=== PATIENT | male | born 1965 | race Caucasian/White ===

== ENCOUNTER 2018-01-28 16:04 | Outpatient (REF) | payer MEDICAID, SELFPAY ==
[2018-01-28 22:45] LABS: Anion Gap 6.8 mmol/L (3-11); BUN 16 mg/dL (7-18); CO2 27.2 mmol/L (21.0-32.0); Calcium 8.9 mg/dL (8.5-10.1); Chloride 95 mmol/L (98-107); Glucose 317 mg/dL (70-100); Potassium 3.9 mmol/L (3.5-5.1); Sodium 129 mmol/L (136-145); TSH (W/Ref FT4) 26.52 uIU/mL (0.358-3.74)
[2018-01-28 22:52] LABS: Hemoglobin A1C 7.9 % (4.5-6.2)
[2018-01-28 23:22] LABS: FREE T4 0.45 ng/dL (0.76-1.46)
== END 2018-01-28 16:05 ==
LOC: NCHCN 16:04
PROVIDERS: PCP Internal Medicine; Visit Provider Internal Medicine
DX: E03.9 Hypothyroidism, unspecified (principal); I10 Essential (primary) hypertension; E11.9 Type 2 diabetes mellitus without complications; M79.606 Pain in leg, unspecified
CPT/HCPCS: 80048; 83036; 84439; 84443

== ENCOUNTER 2018-03-23 11:46 | Outpatient (REF) | payer MEDICAID, SELFPAY ==
[2018-03-23 21:39] LABS: ALT 123 U/L (12-78); AST 94 U/L (15-37); Albumin 4.1 g/dL (3.4-5.0); Alkaline Phosphatase 200 U/L (46-116); Anion Gap 7.6 mmol/L (3-11); BUN 14 mg/dL (7-18); Bilirubin, Total 1.2 mg/dL (0.2-1.0); CO2 29.4 mmol/L (21.0-32.0); CREATININE 1.05 mg/dL (0.70-1.30); Calcium 9.5 mg/dL (8.5-10.1); Chloride 95 mmol/L (98-107); Glucose 288 mg/dL (70-100); Potassium 5.1 mmol/L (3.5-5.1); Sodium 132 mmol/L (136-145); TSH 14.96 uIU/mL (0.358-3.74); Total Protein 7.4 g/dL (6.4-8.2); Uric Acid 3.8 mg/dL (3.5-7.2)
== END 2018-03-23 12:06 ==
LOC: NCHCN 11:46
PROVIDERS: PCP Internal Medicine; Visit Provider Internal Medicine
DX: E03.9 Hypothyroidism, unspecified (principal); M10.9 Gout, unspecified; R94.5 Abnormal results of liver function studies
CPT/HCPCS: 80053; 84443; 84550

== ENCOUNTER 2018-08-13 19:28 | Outpatient (REF) | payer MEDICAID, SELFPAY ==
[2018-08-13 22:40] LABS: COMMENT (LAB VIEW ONLY) 85.18 mg/dL; Microalb ug/mg Crea 21.4 ug/mg Cr
== END 2018-08-13 19:48 ==
LOC: NCHCN 19:28
PROVIDERS: PCP Internal Medicine; Visit Provider Internal Medicine
DX: E11.9 Type 2 diabetes mellitus without complications (principal)
CPT/HCPCS: 82043; 82570

== ENCOUNTER 2019-01-19 08:39 | Outpatient (REF) | payer MEDICAID, SELFPAY ==
[2019-01-19 21:35] LABS: Anion Gap 11.2 mmol/L (3-11); BUN 17 mg/dL (7-18); CO2 26.8 mmol/L (21.0-32.0); CREATININE 0.99 mg/dL (0.70-1.30); Calcium 9.6 mg/dL (8.5-10.1); Calculated LDL 145 mg/dL; Chloride 97 mmol/L (98-107); Cholesterol 224 mg/dL (50-200); Glucose 157 mg/dL (70-100); HDL Cholesterol 56 mg/dL (40-60); Potassium 4.9 mmol/L (3.5-5.1); Sodium 135 mmol/L (136-145); TSH (W/Ref FT4) 16.44 uIU/mL (0.36-3.74); Triglyceride 118 mg/dL (30-150)
[2019-01-19 21:44] LABS: Hemoglobin A1C 6.9 % (4.5-6.2)
== END 2019-01-19 08:59 ==
LOC: NCHCN 08:39
PROVIDERS: PCP Internal Medicine; Visit Provider Internal Medicine
DX: E11.9 Type 2 diabetes mellitus without complications (principal); I10 Essential (primary) hypertension; E03.9 Hypothyroidism, unspecified; Z13.6 Encounter for screening for cardiovascular disorders
CPT/HCPCS: 80048; 80061; 83721; 83036; 84439; 84443

== ENCOUNTER 2019-04-12 21:43 | Outpatient (REF) | payer SELFPAY ==
[2019-04-12 22:05] LABS: Calculated LDL 89 mg/dL; Cholesterol 173 mg/dL (50-200); HDL Cholesterol 67 mg/dL (40-60); TSH 25.35 uIU/mL (0.36-3.74); Triglyceride 87 mg/dL (30-150)
== END 2019-04-12 22:03 ==
LOC: NCHCN 21:43
PROVIDERS: PCP Internal Medicine; Visit Provider Internal Medicine
DX: Z13.220 Encounter for screening for lipoid disorders (principal); E11.9 Type 2 diabetes mellitus without complications; I10 Essential (primary) hypertension; E03.9 Hypothyroidism, unspecified
CPT/HCPCS: 80061; 84443

== ENCOUNTER 2020-02-04 10:54 | Outpatient (REF) | payer SELFPAY ==
[2020-02-04 21:46] LABS: Hemoglobin A1C 6.6 % (<5.7)
[2020-02-04 22:18] LABS: ALT 97 U/L (16-63); AST 90 U/L (15-37); Albumin 3.9 g/dL (3.4-5.0); Alkaline Phosphatase 198 U/L (46-116); Anion Gap 5.8 mmol/L (3-11); BUN 12 mg/dL (7-18); Bilirubin, Total 0.7 mg/dL (0.2-1.0); CO2 31.2 mmol/L (21.0-32.0); CREATININE 1.13 mg/dL (0.70-1.30); Calcium 8.6 mg/dL (8.5-10.1); Calculated LDL 71 mg/dL (<100); Chloride 99 mmol/L (98-107); Cholesterol 139 mg/dL (<200); Glucose 214 mg/dL (74-106); HDL Cholesterol 50 mg/dL (40-60); Potassium 4.1 mmol/L (3.5-5.1); Sodium 136 mmol/L (136-145); TSH 19.46 uIU/mL (0.36-3.74); Total Protein 6.8 g/dL (6.4-8.2); Triglyceride 94 mg/dL (<150)
== END 2020-02-04 11:14 ==
LOC: NCHCN 10:54
PROVIDERS: PCP Internal Medicine; Visit Provider Internal Medicine
DX: E78.5 Hyperlipidemia, unspecified (principal); E11.9 Type 2 diabetes mellitus without complications; I10 Essential (primary) hypertension
CPT/HCPCS: 80053; 80061; 83036; 84443

== ENCOUNTER 2020-05-03 10:55 | Outpatient (REF) | payer SELFPAY ==
[2020-05-03 22:49] LABS: TSH 27.99 uIU/mL (0.36-3.74)
== END 2020-05-03 11:15 ==
LOC: NCHCN 10:55
PROVIDERS: PCP Internal Medicine; Visit Provider Internal Medicine
DX: E03.9 Hypothyroidism, unspecified (principal); E11.9 Type 2 diabetes mellitus without complications; I10 Essential (primary) hypertension
CPT/HCPCS: 84443

== ENCOUNTER 2021-01-01 13:17 | Outpatient (REF) | payer MEDICAID, SELFPAY ==
[2021-01-01 15:37] LABS: Abs Immature Grans 0.02 10^3/uL (0.0-0.06); Absolute Eosinophil Count 0.57 10^3/uL (0.0-0.7); Absolute Lymphocyte Count 1.54 10^3/uL (1.2-3.4); Absolute Monocyte Count 0.67 10^3/uL (0.1-0.8); Absolute Neutrophil Count 3.72 10^3/uL (1.2-6.7); Basophils % 1.5; Eosinophils % 8.6; HCT 38.7 % (40.0-50.0); Immature Grans % 0.3; Lymphocytes % 23.3; MCH 30.2 pg (27.0-33.0); MCHC 33.6 % (32.0-36.0); MPV 14.5 fL (8.0-11.0); Monocytes % 10.1; Neutrophils % 56.2; Nucleated RBC 0 %; Platelet Count 134 10^3/uL (130-400); RDW 12.2 % (11.8-14.1); RDW-SD 40.4 fL; WBC 6.62 10^3/uL (4.4-10.8)
[2021-01-01 16:14] LABS: ALT 64 U/L (16-63); AST 53 U/L (15-37); Albumin 3.6 g/dL (3.4-5.0); Alkaline Phosphatase 334 U/L (46-116); Anion Gap 6.2 mmol/L (3-11); BUN 26 mg/dL (7-18); Bilirubin, Total 0.9 mg/dL (0.2-1.0); CO2 28.8 mmol/L (21.0-32.0); CREATININE 1.4 mg/dL (0.70-1.30); Calcium 9.2 mg/dL (8.5-10.1); Chloride 100 mmol/L (98-107); Estimated GFR 52.42 (mL/min/1.73m2); Glucose 230 mg/dL (74-106); Potassium 4.3 mmol/L (3.5-5.1); Sodium 135 mmol/L (136-145); TSH 0.07 uIU/mL (0.36-3.74); Total Protein 6.9 g/dL (6.4-8.2)
[2021-01-01 16:36] LABS: Hemoglobin A1C 6.2 % (<5.7)
== END 2021-01-01 13:18 | disposition home or self-care (01) ==
LOC: NCHCN 13:17
PROVIDERS: PCP Internal Medicine; Visit Provider Internal Medicine
DX: E11.9 Type 2 diabetes mellitus without complications (principal); K76.0 Fatty (change of) liver, not elsewhere classified; E03.9 Hypothyroidism, unspecified
CPT/HCPCS: 80053; 83036; 84443; 85025

== ENCOUNTER 2021-01-05 14:49 | Outpatient (REF) | payer MEDICAID, SELFPAY ==
[2021-01-05 16:45] LABS: COMMENT (LAB VIEW ONLY) 57.45 mg/dL; Microalb ug/mg Crea 17.6 ug/mg Cr
== END 2021-01-05 14:50 | disposition home or self-care (01) ==
LOC: NCHCN 14:49
PROVIDERS: PCP Internal Medicine; Visit Provider Internal Medicine
DX: E11.9 Type 2 diabetes mellitus without complications (principal)
CPT/HCPCS: 82043; 82570

== ENCOUNTER 2021-03-30 15:48 | Outpatient (REF) | payer MEDICAID, SELFPAY ==
[2021-03-30 20:23] LABS: HCT 32.7 % (40.0-50.0); MCH 31.3 pg (27.0-33.0); MCHC 33.6 % (32.0-36.0); MCV 93.2 fL (80-95); MPV 12.8 fL (8.0-11.0); Platelet Count 125 10^3/uL (130-400); RBC 3.51 10^6/uL (4.36-5.78); RDW 12.8 % (11.8-14.1); RDW-SD 43.8 fL; WBC 8.52 10^3/uL (4.4-10.8)
[2021-03-30 20:28] LABS: Iron 90 ug/dL (65-175); Total Iron Binding Capacity 253 ug/dL (250-450); Transferrin Sat 36 % (20-55)
[2021-03-30 20:57] LABS: ALT 56 U/L (16-63); AST 57 U/L (15-37); Albumin 3.7 g/dL (3.4-5.0); Alkaline Phosphatase 287 U/L (46-116); Anion Gap 5.2 mmol/L (3-11); BUN 25 mg/dL (7-18); Bilirubin, Total 0.7 mg/dL (0.2-1.0); CO2 29.8 mmol/L (21.0-32.0); CREATININE 1.3 mg/dL (0.70-1.30); Calcium 8.8 mg/dL (8.5-10.1); Chloride 104 mmol/L (98-107); Ferritin 278 ng/mL (26-388); Glucose 102 mg/dL (74-106); Potassium 4.2 mmol/L (3.5-5.1); Sodium 139 mmol/L (136-145); TSH 1.31 uIU/mL (0.36-3.74); Total Protein 6.9 g/dL (6.4-8.2); Vitamin B12 457 pg/mL (193-986)
[2021-04-02 09:46] LABS: PSA, Screening 0.1 ng/mL (0.0-3.5)
== END 2021-03-30 15:49 | disposition home or self-care (01) ==
LOC: NCHCN 15:48
PROVIDERS: PCP Internal Medicine; Visit Provider Internal Medicine
DX: I10 Essential (primary) hypertension (principal); E03.9 Hypothyroidism, unspecified; Z00.00 Encounter for general adult medical examination without abnormal findings; K76.0 Fatty (change of) liver, not elsewhere classified; Z12.5 Encounter for screening for malignant neoplasm of prostate; D64.9 Anemia, unspecified
CPT/HCPCS: 80053; 84153; 85027; 82607; 82728; 83540; 83550; 84443

== ENCOUNTER 2021-08-15 18:58 | Outpatient (REF) | payer MEDICAID, SELFPAY ==
[2021-08-15 18:01] LABS: HCT 36.8 % (40.0-50.0); HGB 12.5 g/dL (13.5-17.5); MCH 31.3 pg (27.0-33.0); Platelet Count 142 10^3/uL (130-400); RDW 12.8 % (11.8-14.1); RDW-SD 43.2 fL; WBC 7.21 10^3/uL (4.4-10.8)
[2021-08-15 18:08] LABS: INR 1.1 (0.9-1.1); Prothrombin Time 11.4 sec (9.3-11.0)
[2021-08-15 18:23] LABS: ALT 65 U/L (16-63); AST 54 U/L (15-37); Albumin 3.9 g/dL (3.4-5.0); Alkaline Phosphatase 274 U/L (46-116); BUN 27 mg/dL (7-18); Bilirubin, Total 0.8 mg/dL (0.2-1.0); CREATININE 1.3 mg/dL (0.70-1.30); Calcium 8.7 mg/dL (8.5-10.1); Chloride 97 mmol/L (98-107); Glucose 282 mg/dL (74-106); Potassium 4.3 mmol/L (3.5-5.1); Sodium 132 mmol/L (136-145)
[2021-08-18 17:35] LABS: Mitochondrial Ab, M2 <0.1 U
== END 2021-08-15 18:59 | disposition home or self-care (01) ==
LOC: NCHCN 18:58
PROVIDERS: PCP Internal Medicine; Visit Provider Internal Medicine
DX: K74.60 Unspecified cirrhosis of liver (principal); E11.9 Type 2 diabetes mellitus without complications
CPT/HCPCS: 80053; 83516; 85027; 85610

== ENCOUNTER 2021-12-18 18:26 | Outpatient (REF) | payer MEDICAID, SELFPAY ==
[2021-12-18 15:47] LABS: Calculated LDL 72 mg/dL (<100); Cholesterol 165 mg/dL (<200); HDL Cholesterol 81 mg/dL (40-60); TSH (W/Ref FT4) 0.35 uIU/mL (0.36-3.74); Triglyceride 63 mg/dL (<150)
[2021-12-18 16:03] LABS: FREE T4 1.07 ng/dL (0.76-1.46)
== END 2021-12-18 18:27 | disposition home or self-care (01) ==
LOC: NCHCN 18:26
PROVIDERS: PCP Internal Medicine; Visit Provider Family Medicine
DX: E03.9 Hypothyroidism, unspecified (principal); R63.4 Abnormal weight loss
CPT/HCPCS: 80061; 84439; 84443

== ENCOUNTER 2022-03-25 13:25 | Outpatient (REF) | payer MEDICAID, SELFPAY ==
[2022-03-25 14:33] LABS: HCT 38.6 % (40.0-50.0); HGB 13.7 g/dL (13.5-17.5); MCH 31.9 pg (27.0-33.0); MCHC 35.5 % (32.0-36.0); MCV 90 fL (80-95); Platelet Count 133 10^3/uL (130-400); RBC 4.29 10^6/uL (4.36-5.78); RDW 12.2 % (11.8-14.1); RDW-SD 40.1 fL; WBC 7.76 10^3/uL (4.4-10.8)
[2022-03-25 14:54] LABS: ALT 76 U/L (16-63); AST 68 U/L (15-37); Albumin 3.9 g/dL (3.4-5.0); Alkaline Phosphatase 245 U/L (46-116); Anion Gap 7.4 mmol/L (3-11); BUN 17 mg/dL (7-18); Bilirubin, Total 0.9 mg/dL (0.2-1.0); CO2 27.6 mmol/L (21.0-32.0); CREATININE 1.2 mg/dL (0.70-1.30); Calcium 9.2 mg/dL (8.5-10.1); Chloride 101 mmol/L (98-107); Estimated GFR 70.53 (mL/min/1.73m2); Glucose 203 mg/dL (74-106); Potassium 4.1 mmol/L (3.5-5.1); Sodium 136 mmol/L (136-145); TSH 1.29 uIU/mL (0.36-3.74); Total Protein 7.5 g/dL (6.4-8.2)
[2022-03-25 15:44] LABS: COMMENT (LAB VIEW ONLY) 166.56 mg/dL; Microalb ug/mg Crea 53.4 ug/mg Cr
== END 2022-03-25 13:26 | disposition home or self-care (01) ==
LOC: NCHCN 13:25
PROVIDERS: PCP Internal Medicine; Visit Provider Internal Medicine
DX: E11.9 Type 2 diabetes mellitus without complications (principal); E03.9 Hypothyroidism, unspecified; I10 Essential (primary) hypertension
CPT/HCPCS: 80053; 85027; 82043; 82570; 84443

== ENCOUNTER 2022-07-29 18:02 | Outpatient (REF) | payer MEDICAID, SELFPAY ==
[2022-07-29 21:01] LABS: HCT 34.1 % (40.0-50.0); HGB 12.6 g/dL (13.5-17.5); MCH 32.6 pg (27.0-33.0); MCV 88 fL (80-95); MPV 12.4 fL (8.0-11.0); Platelet Count 143 10^3/uL (130-400); RBC 3.87 10^6/uL (4.36-5.78); RDW 12.9 % (11.8-14.1); RDW-SD 42.1 fL; WBC 9.09 10^3/uL (4.4-10.8)
[2022-07-29 21:14] LABS: ALT 213 U/L (16-63); AST 306 U/L (15-37); Albumin 4.4 g/dL (3.4-5.0); Alkaline Phosphatase 228 U/L (46-116); BUN 21 mg/dL (7-18); CREATININE 2.3 mg/dL (0.70-1.30); Calcium 9.6 mg/dL (8.5-10.1); Chloride 89 mmol/L (98-107); Estimated GFR 32.11 (mL/min/1.73m2); Glucose 125 mg/dL (74-106); Potassium 3.1 mmol/L (3.5-5.1); Sodium 128 mmol/L (136-145); Total Protein 7.8 g/dL (6.4-8.2)
== END 2022-07-29 18:03 | disposition home or self-care (01) ==
LOC: NCHCN 18:02
PROVIDERS: PCP Internal Medicine; Visit Provider Internal Medicine
DX: K74.69 Other cirrhosis of liver (principal); K59.09 Other constipation
CPT/HCPCS: 80053; 85027

== ENCOUNTER 2022-08-05 13:26 | Outpatient (REF) | payer MEDICAID, SELFPAY ==
--- OUTSIDE RECORDS SUMMARY | 2022-08-05 13:30 | XMS_ITS | CCD ---
Author Name Unknown Address [address] [place] [address] [id number] Organization Unknown Address [address] [place] [address] [phone] Care Team Providers Care Forge Helper Name Role Phone DOROTHY KAISER Attending Physician [phone] Vital Signs Unknown or Not Available. Allergies Allergy Code Allergy Type Reaction Status No Known Allergies 0 No known allergies Active Procedures Unknown or Not Available. History of Immunizations Unknown or Not Available. Problems Unknown or Not Available. Results Unknown or Not Available. Active Medications Medication Code Dose Units Frequency Route Modificatio n Start Date/Time Erythromycin 5MG/1GM Ophthalmic Ointment 737299 1 FOUR TIMES A DAY OPHTHALMIC 02/02/2022 10:[address] OPHTHALMIC FOUR TIMES A DAY for 1 week. 1/4 inch inside right lower eyelid Medications Administered During Visit Unknown or Not Available. Encounters Encounter Diagnosis Diagnosis Code Start Date Abnormal findings diagnostic imaging of liver+bi liary tract [id number] 04/10/2021 Social History Smoking Status Code Start Date End Date Current some day smoker [id number] Patient Decision Aids Unknown or Not Available. Discharge Instructions You were admitted to [facility] on 04/10/2021 08:43 with a principal diagnosis of Abnormal findings on diagnostic imaging of liver and biliary tract You were discharged from [facility] on 04/10/2021 08:43 Should you have any questions prior to discharge, please contact a member of your healthcare team. If you have left the hospital and have any questions, please contact your primary care physician. Chief Complaint and Reason For Visit Chief Complaint Date of Onset FATTY LIVER DISEASE Function Status Unknown or Not Available. Plan of Care Unknown or Not Available. Referral/Transition of Care Unknown or Not Available.
--- OUTSIDE RECORDS SUMMARY | 2022-08-05 13:30 | XMS_ITS | CCD ---
Author Name Unknown Address [address] [place] [address] [phone] Organization Unknown Address [address] [place] [address] [phone] Care Team Providers Care Steam Flattener Name Role Phone SARMAD ACEVEDO Attending Physician [phone] SUE BHATIA Er Physician [phone] YESSI Alanis Registered Nurse [phone] Vital Signs Vital Sign Value Unit Date/Time Recent/Initial ? BMI (Body Mass Index) 29.05 kg/m^2 02/02/2022 09: 12 Initial VS Weight Measured 180 lbs 02/02/2022 09:12 Ini tial VS Height 66 in 02/02/2022 09:12 Initial VS BSA (Body Surface Area) 1.95 m^2 02/02/2022 0 9:12 Initial VS BP Systolic 143 mmHg 02/02/2022 09:12 Initial VS BP Diastolic 68 mmHg 02/02/2022 09:12 Initia l VS Respiratory Rate 16 bpm 02/02/2022 09:12 In itial VS Heart Rate 65 bpm 02/02/2022 09:12 Initial VS O2 % BldC Oximetry 99 % 02/02/2022 09:12 Initial VS Body Temperature 35.6 degrees 02/02/2022 09:12 In itial VS Allergies Allergy Code Allergy Type Reaction Status No Known Allergies 0 No known allergies Active Procedures Unknown or Not Available. History of Immunizations Unknown or Not Available. Problems Unknown or Not Available. Results Unknown or Not Available. Active Medications Medications Administered During Visit Medication Dose Units Frequency Route Date/Time of Last Dose TETRACAINE OPTH SOLN 0.5% 4ML 1 DROP X1 OPTH EACH EYE 02/02/2022 09: 23 ERYTHROMYCIN OPHTHALMIC OINTMENT 3.5GM 1 МАРИЯ X1 OPTH EACH EYE 02/02/2022 1 0:57 Encounters Encounter Diagnosis Diagnosis Code Start Date Foreign body in cornea, right eye, initial encou nter [id number] 02/02/2022 Social History Smoking Status Code Start Date End Date Current some day smoker [id number] Patient Decision Aids Unknown or Not Available. Discharge Instructions You were admitted to [facility] on 02/02/2022 08:36 with a principal diagnosis of Foreign body in cornea, right eye, initial encounter You were discharged from [facility] on 02/02/2022 10:58 Should you have any questions prior to discharge, please contact a member of your healthcare team. If you have left the hospital and have any questions, please contact your primary care physician. Chief Complaint and Reason For Visit Chief Complaint Date of Onset R EYE IRRITATION Function Status Unknown or Not Available. Plan of Care Unknown or Not Available. Referral/Transition of Care Unknown or Not Available.
--- OUTSIDE RECORDS SUMMARY | 2022-08-05 13:30 | XMS_ITS | CCD ---
Author Name Unknown Address [address] [place] [address] [phone] Organization Unknown Address [address] [place] [address] [phone] Care Team Providers Care Coupon Clerk Name Role Phone ZEESHAN YASH Berry Attending Physician [phone] Vital Signs Unknown or Not Available. Allergies Allergy Code Allergy Type Reaction Status No Known Allergies 0 No known allergies Active Procedures Unknown or Not Available. History of Immunizations Unknown or Not Available. Problems Unknown or Not Available. Results Unknown or Not Available. Active Medications Medication Code Dose Units Frequency Route Modificatio n Start Date/Time Erythromycin 5MG/1GM Ophthalmic Ointment 692443 1 FOUR TIMES A DAY OPHTHALMIC 02/02/2022 10:[address] 1 OPHTHALMIC FOUR TIMES A DAY for 1 week. 1/4 inch inside right lower eyelid Medications Administered During Visit Unknown or Not Available. Encounters Encounter Diagnosis Diagnosis Code Start Date Encounter for screening for malignant neoplasm of respiratory organs Z122 01/14/2022 Social History Smoking Status Code Start Date End Date Current some day smoker [id number] Patient Decision Aids Unknown or Not Available. Discharge Instructions You were admitted to [facility] on 01/14/2022 13:47 with a principal diagnosis of Encounter for screening for malignant neoplasm of respiratory organs You were discharged from [facility] on 01/14/2022 13:47 Should you have any questions prior to discharge, please contact a member of your healthcare team. If you have left the hospital and have any questions, please contact your primary care physician. Chief Complaint and Reason For Visit Chief Complaint Date of Onset SCREENING Function Status Unknown or Not Available. Plan of Care Unknown or Not Available. Referral/Transition of Care Unknown or Not Available.
--- OUTSIDE RECORDS SUMMARY | 2022-08-05 13:30 | XMS_ITS | CCD ---
Author Name Unknown Address [address] [place] [address] [phone] Organization Unknown Address [address] [place] [address] [phone] Care Team Providers Care Last Chalker Name Role Phone DOROTHY KAISER Attending Physician [phone] Vital Signs Unknown or Not Available. Allergies Allergy Code Allergy Type Reaction Status No Known Allergies 0 No known allergies Active Procedures Unknown or Not Available. History of Immunizations Unknown or Not Available. Problems Unknown or Not Available. Results Unknown or Not Available. Active Medications Medication Code Dose Units Frequency Route Modificatio n Start Date/Time Erythromycin 5MG/1GM Ophthalmic Ointment 252609 1 FOUR TIMES A DAY OPHTHALMIC 02/02/2022 10:[address] 1 OPHTHALMIC FOUR TIMES A DAY for 1 week. 1/4 inch inside right lower eyelid Medications Administered During Visit Unknown or Not Available. Encounters Encounter Diagnosis Diagnosis Code Start Date Unspecified cirrhosis of liver K7460 0 07/16/2022 Social History Smoking Status Code Start Date End Date Current some day smoker [id number] Patient Decision Aids Unknown or Not Available. Discharge Instructions You were admitted to [facility] on 07/16/2022 07:47 with a principal diagnosis of Unspecified cirrhosis of liver You were discharged from [facility] on 07/16/2022 07:47 Should you have any questions prior to discharge, please contact a member of your healthcare team. If you have left the hospital and have any questions, please contact your primary care physician. Chief Complaint and Reason For Visit Unknown or Not Available. Function Status Unknown or Not Available. Plan of Care Unknown or Not Available. Referral/Transition of Care Unknown or Not Available.
--- OUTSIDE RECORDS SUMMARY | 2022-08-05 13:31 | XMS_ITS | CCD ---
Author Name Unknown Address [address] [place] [address] [phone] Organization Unknown Address [address] [place] [address] [phone] Care Team Providers Care Pulp Mill Operator Name Role Phone DOROTHY KAISER Attending Physician [phone] Vital Signs Unknown or Not Available. Allergies Allergy Code Allergy Type Reaction Status No Known Allergies 0 No known allergies Active Procedures Unknown or Not Available. History of Immunizations Unknown or Not Available. Problems Unknown or Not Available. Results Unknown or Not Available. Active Medications Medication Code Dose Units Frequency Route Modificatio n Start Date/Time Erythromycin 5MG/1GM Ophthalmic Ointment 461650 1 FOUR TIMES A DAY OPHTHALMIC 02/02/2022 10:[address] 1 OPHTHALMIC FOUR TIMES A DAY for 1 week. 1/4 inch inside right lower eyelid Medications Administered During Visit Unknown or Not Available. Encounters Encounter Diagnosis Diagnosis Code Start Date Refusal of treatment by patient [id number] 05/09/2021 Social History Smoking Status Code Start Date End Date Current some day smoker [id number] Patient Decision Aids Unknown or Not Available. Discharge Instructions You were admitted to [facility] on 05/09/2021 08:14 with a principal diagnosis of Procedure and treatment not carried out because of patient's decision for other reasons You were discharged from [facility] on 05/09/2021 08:14 Should you have any questions prior to discharge, please contact a member of your healthcare team. If you have left the hospital and have any questions, please contact your primary care physician. Chief Complaint and Reason For Visit Chief Complaint Date of Onset HX SMOKING LDCT Function Status Unknown or Not Available. Plan of Care Unknown or Not Available. Referral/Transition of Care Unknown or Not Available.
--- OUTSIDE RECORDS SUMMARY | 2022-08-05 13:31 | XMS_ITS | CCD ---
Author Name Unknown Address [address] [place] [address] [id number] Organization Unknown Address [address] [place] [address] [phone] Care Team Providers Care Stunt Person Name Role Phone DENISE BAEZ Attending Physician [phone] Vital Signs Unknown or Not Available. Allergies Allergy Code Allergy Type Reaction Status No Known Allergies 0 No known allergies Active Procedures Unknown or Not Available. History of Immunizations Unknown or Not Available. Problems Unknown or Not Available. Results LUIS ENRIQUE ROBLES CHALOYAHAIRAX* - Alina ect Date/Time: 07/20/2021 09:51 Test Name Code Test Result Test Units Test Ref Rang e Tier- 17558-1 PRE-OP N/A SARS COV2 RNA: 70535-5 NEGATIVE N/A REFERENCE RANGE: NEGAT Active Medications Medication Code Dose Units Frequency Route Modificatio n Start Date/Time Erythromycin 5MG/1GM Ophthalmic Ointment 684579 1 FOUR TIMES A DAY OPHTHALMIC 02/02/2022 10:[address] 1 OPHTHALMIC FOUR TIMES A DAY for 1 week. 1/4 inch inside right lower eyelid Medications Administered During Visit Unknown or Not Available. Encounters Encounter Diagnosis Diagnosis Code Start Date Encounter for preprocedural laboratory examinati on [id number] 07/20/2021 Social History Smoking Status Code Start Date End Date Current some day smoker [id number] Patient Decision Aids Unknown or Not Available. Discharge Instructions You were admitted to [facility] on 07/20/2021 11:18 with a principal diagnosis of Encounter for preprocedural laboratory examination You had the following tests done:LUIS ENRIQUEMARCK BECKID RHEONIX* You were discharged from [facility] on 07/20/2021 11:18 Should you have any questions prior to [...]
[2022-08-05 21:58] LABS: Anion Gap 9.1 mmol/L (3-11); BUN 15 mg/dL (7-18); CO2 27.9 mmol/L (21.0-32.0); CREATININE 1.7 mg/dL (0.70-1.30); Calcium 9.3 mg/dL (8.5-10.1); Chloride 98 mmol/L (98-107); Estimated GFR 46.15 (mL/min/1.73m2); Glucose 155 mg/dL (74-106); Sodium 135 mmol/L (136-145); TSH 74.18 uIU/mL (0.36-3.74)
== END 2022-08-05 13:27 | disposition home or self-care (01) ==
LOC: NCHCN 13:26
PROVIDERS: PCP Internal Medicine; Visit Provider Internal Medicine
DX: E03.9 Hypothyroidism, unspecified (principal); E87.1 Hypo-osmolality and hyponatremia
CPT/HCPCS: 80048; 84443

== ENCOUNTER 2022-09-11 15:18 | Outpatient (REF) | payer MEDICAID, SELFPAY ==
[2022-09-11 14:25] LABS: ALT 50 U/L (16-63); AST 47 U/L (15-37); Albumin 3.9 g/dL (3.4-5.0); Alkaline Phosphatase 210 U/L (46-116); Anion Gap 9.1 mmol/L (3-11); BUN 18 mg/dL (7-18); CO2 28.9 mmol/L (21.0-32.0); CREATININE 1.4 mg/dL (0.70-1.30); Calcium 9.1 mg/dL (8.5-10.1); Chloride 101 mmol/L (98-107); Estimated GFR 58.26 (mL/min/1.73m2); Glucose 244 mg/dL (74-106); Potassium 3.6 mmol/L (3.5-5.1); Sodium 139 mmol/L (136-145); Total Protein 7.5 g/dL (6.4-8.2)
== END 2022-09-11 15:19 | disposition home or self-care (01) ==
LOC: NCHCN 15:18
PROVIDERS: PCP Internal Medicine; Visit Provider Internal Medicine
DX: K74.69 Other cirrhosis of liver (principal); N17.9 Acute kidney failure, unspecified
CPT/HCPCS: 80053

== ENCOUNTER 2022-10-24 09:43 | Outpatient (REF) | payer MEDICAID, SELFPAY ==
[2022-10-24 17:06] LABS: Anion Gap 6.6 mmol/L (3-11); BUN 17 mg/dL (7-18); CO2 27.4 mmol/L (21.0-32.0); CREATININE 1.3 mg/dL (0.70-1.30); Calcium 9.3 mg/dL (8.5-10.1); Chloride 104 mmol/L (98-107); Estimated GFR 63.68 (mL/min/1.73m2); Glucose 213 mg/dL (74-106); Potassium 4.2 mmol/L (3.5-5.1); Sodium 138 mmol/L (136-145); TSH 1.87 uIU/mL (0.36-3.74)
== END 2022-10-24 09:44 | disposition home or self-care (01) ==
LOC: NCHCN 09:43
PROVIDERS: PCP Internal Medicine; Visit Provider Internal Medicine
DX: E03.9 Hypothyroidism, unspecified (principal); I10 Essential (primary) hypertension; E87.1 Hypo-osmolality and hyponatremia; N17.9 Acute kidney failure, unspecified
CPT/HCPCS: 80048; 84443

== ENCOUNTER 2023-02-10 17:45 | Outpatient (REF) | payer MEDICAID, SELFPAY ==
[2023-02-10 21:32] LABS: Microalb ug/mg Crea 16.1 ug/mg Cr
== END 2023-02-10 17:46 | disposition home or self-care (01) ==
LOC: NCHCN 17:45
PROVIDERS: PCP Internal Medicine; Visit Provider Internal Medicine
DX: E11.9 Type 2 diabetes mellitus without complications (principal)
CPT/HCPCS: 82043; 82570

== ENCOUNTER 2023-05-09 14:51 | Outpatient (REF) | payer MEDICAID, SELFPAY ==
[2023-05-09 15:32] LABS: Hemoglobin A1C 6.6 % (<5.7)
[2023-05-09 16:20] LABS: ALT 82 U/L (16-63); AST 84 U/L (15-37); Albumin 3.5 g/dL (3.4-5.0); Alkaline Phosphatase 204 U/L (46-116); Anion Gap 4.4 mmol/L (3-11); BUN 17 mg/dL (7-18); Bilirubin, Total 0.8 mg/dL (0.2-1.0); CO2 31.6 mmol/L (21.0-32.0); CREATININE 1.5 mg/dL (0.70-1.30); Calcium 8.9 mg/dL (8.5-10.1); Chloride 100 mmol/L (98-107); Estimated GFR 53.63 (mL/min/1.73m2); Glucose 249 mg/dL (74-106); Potassium 3.7 mmol/L (3.5-5.1); Sodium 136 mmol/L (136-145); TSH 65.49 uIU/mL (0.36-3.74); Total Protein 7.2 g/dL (6.4-8.2)
== END 2023-05-09 14:52 | disposition home or self-care (01) ==
LOC: NCHCN 14:51
PROVIDERS: PCP Internal Medicine; Visit Provider Internal Medicine
DX: E11.9 Type 2 diabetes mellitus without complications (principal); E03.9 Hypothyroidism, unspecified; I10 Essential (primary) hypertension
CPT/HCPCS: 80053; 83036; 84443

== ENCOUNTER 2023-08-15 08:44 | Outpatient (REF) | payer MEDICAID, SELFPAY ==
[2023-08-15 14:33] LABS: Hemoglobin A1C 7.5 % (<5.7)
[2023-08-15 14:49] LABS: ALT 70 U/L (16-63); AST 64 U/L (15-37); Albumin 3.6 g/dL (3.4-5.0); Alkaline Phosphatase 223 U/L (46-116); Anion Gap 7.6 mmol/L (3-11); BUN 22 mg/dL (7-18); Bilirubin, Total 1.5 mg/dL (0.2-1.0); CO2 29.4 mmol/L (21.0-32.0); CREATININE 1.2 mg/dL (0.70-1.30); Calcium 8.7 mg/dL (8.5-10.1); Chloride 98 mmol/L (98-107); Estimated GFR 69.66 (mL/min/1.73m2); Glucose 182 mg/dL (74-106); Potassium 4.1 mmol/L (3.5-5.1); Sodium 135 mmol/L (136-145); TSH 1.19 uIU/Ml (0.36-3.74)
== END 2023-08-15 08:45 | disposition home or self-care (01) ==
LOC: NCHCN 08:44
PROVIDERS: PCP Internal Medicine; Referring Provider Internal Medicine; Visit Provider Internal Medicine
DX: E03.9 Hypothyroidism, unspecified (principal); E11.9 Type 2 diabetes mellitus without complications; K74.60 Unspecified cirrhosis of liver
CPT/HCPCS: 80053; 83036; 84443

== ENCOUNTER 2024-02-18 18:03 | Outpatient (REF) | payer MEDICAID, SELFPAY ==
[2024-02-18 21:35] LABS: HCT 43.8 % (40.0-50.0); HGB 14.4 g/dL (13.5-17.5); MCH 29.6 pg (27.0-33.0); MCHC 32.9 % (32.0-36.0); MCV 90 fL (80-95); MPV 12.6 fL (8.0-11.0); Platelet Count 238 10^3/uL (130-400); RBC 4.86 10^6/uL (4.36-5.78); RDW 15.8 % (11.8-14.1); RDW-SD 52.2 fL; WBC 11.21 10^3/uL (4.4-10.8)
[2024-02-18 21:53] LABS: Hemoglobin A1C 7.2 % (<5.7)
[2024-02-18 22:07] LABS: ALT 128 U/L (16-63); AST 139 U/L (15-37); Albumin 4.1 g/dL (3.4-5.0); Alkaline Phosphatase 246 U/L (46-116); BUN 21 mg/dL (7-18); Bilirubin, Total 1.22 mg/dL (0.2-1.0); CREATININE 1.7 mg/dL (0.70-1.30); Calculated LDL 100 mg/dL (<100); Chloride 103 mmol/L (98-107); Cholesterol 213 mg/dL (<200); Estimated GFR 45.86 (mL/min/1.73m2); Glucose 125 mg/dL (74-106); HDL Cholesterol 99 mg/dL (40-60); Sodium 141 mmol/L (136-145); TSH 31.78 uIU/Ml (0.36-3.74); Triglyceride 70 mg/dL (<150)
== END 2024-02-18 18:04 | disposition home or self-care (01) ==
LOC: NCHCN 18:03
PROVIDERS: PCP Internal Medicine; Visit Provider Internal Medicine
DX: E11.9 Type 2 diabetes mellitus without complications (principal); K74.60 Unspecified cirrhosis of liver; E03.9 Hypothyroidism, unspecified
CPT/HCPCS: 80053; 80061; 85027; 83036; 84443

== ENCOUNTER 2024-03-01 17:44 | Outpatient (REF) | payer MEDICAID, SELFPAY ==
[2024-03-01 21:47] LABS: COMMENT (LAB VIEW ONLY) 116.19 mg/dL; Microalb ug/mg Crea 55.4 ug/mg Cr
== END 2024-03-01 17:45 | disposition home or self-care (01) ==
LOC: NCHCN 17:44
PROVIDERS: PCP Internal Medicine; Visit Provider Internal Medicine
DX: E11.9 Type 2 diabetes mellitus without complications (principal)
CPT/HCPCS: 82043; 82570

== ENCOUNTER 2024-05-21 12:33 | Outpatient (REF) | payer MEDICAID, SELFPAY ==
[2024-05-21 15:38] LABS: HCT 40.3 % (40.0-50.0); HGB 13.7 g/dL (13.5-17.5); MCH 31.7 pg (27.0-33.0); MCV 93 fL (80-95); Platelet Count 158 10^3/uL (130-400); RBC 4.32 10^6/uL (4.36-5.78); RDW 12.5 % (11.8-14.1); WBC 7.13 10^3/uL (4.4-10.8)
[2024-05-21 16:10] LABS: ALT 40 U/L (16-63); AST 42 U/L (15-37); Albumin 3.3 g/dL (3.4-5.0); Alkaline Phosphatase 258 U/L (46-116); Anion Gap 5.7 mmol/L (3-11); BUN 22 mg/dL (7-18); Bilirubin, Total 0.59 mg/dL (0.2-1.0); CO2 29.3 mmol/L (21.0-32.0); CREATININE 1.2 mg/dL (0.70-1.30); Chloride 104 mmol/L (98-107); Estimated GFR 69.66 (mL/min/1.73m2); Glucose 225 mg/dL (74-106); Potassium 4.4 mmol/L (3.5-5.1); Sodium 139 mmol/L (136-145); TSH 3.12 uIU/mL (0.36-3.74); Total Protein 7.1 g/dL (6.4-8.2)
[2024-05-21 16:19] LABS: Hemoglobin A1C 7.2 % (<5.7)
[2024-05-21 16:22] LABS: Calcium 8.8 mg/dL (8.5-10.1)
== END 2024-05-21 12:34 | disposition home or self-care (01) ==
LOC: NCHCN 12:33
PROVIDERS: PCP Internal Medicine; Visit Provider Internal Medicine
DX: K74.60 Unspecified cirrhosis of liver (principal); E03.9 Hypothyroidism, unspecified; E11.9 Type 2 diabetes mellitus without complications
CPT/HCPCS: 80053; 85027; 83036; 84443

== ENCOUNTER 2024-06-15 01:55 | Outpatient (CLI) | payer MEDICAID, SELFPAY ==
--- NOTE | 2024-06-15 | DI.CTLCSR_ITS ---
Exam(s) CT CHEST LUNG CANCER SCREEN EXAM: CT CHEST LUNG CANCER SCREEN CLINICAL HISTORY: PERS HX NICOTINE DEPENDENCE Z87.891 FORMER HEAVY SMOKER TECHNIQUE: Imaging Protocol: Axial computed tomography images with coronal and sagittal reformatted images were created and reviewed. Low dose screening protocol. COMPARISON: CT CT LDCT FOR LUNG CA SCREEN from 01/14/2022 FINDINGS: Tracheobronchial tree: No bronchiectasis or mucus plugging. Mediastinum and Gina: No dominant adenopathy or fluid collection. Pulmonary parenchyma: No consolidation or dominant measurable mass. No visible emphysematous changes. No significant interstitial changes. Lung Nodules: Stable 3 millimeter nodule right upper lobe. Pleura: No effusion. No pneumothorax. Heart: The heart is mildly dilated. Severe coronary artery calcifications are seen. No pericardial e ffusion. Aorta: Thoracic aorta non-dilated. Upper abdomen: Unremarkable. Bones: Old left rib fractures. No thoracic compression fractures. Soft Tissues: Unremarkable. IMPRESSION: No suspicious pulmonary nodules. Lung RADS Cat 2 - Benign Appearance / Behavior: Nodules with a very low likelihood of becoming a clin ically active cancer due to size or lack of growth Lung-RADS 1.0 CATEGORIES: Category 0 - Prior chest CT exam(s) being located for comparison. Category 1 - Annual screening in 12 months. No nodules or definitely benign nodules. Category 2 - Annual screening in 12 months. Benign appearance. Nodules with low likelihood of becomin g active cancer. Category 3 - 6-month follow-up. Probably benign. Short-term follow-up suggested. Nodules with low lik elihood of becoming active cancer. Category 4A - 3-month follow-up and CT/PET if >8 mm in size. Suspicious finding. Findings which requi re additional testing. Category 4B - Findings which require additional testing and tissue sampling. Category 4X - Category 3 or 4 nodules with additional features or imaging findings that increases the suspicion of malignancy. Modifier S- Potentially clinically significant findings (non lung cancer) RADIATION DOSE DELIVERED: !Error Total DLP DATA REPOSITORY: All CT scans at this facility are submitted to the National Radiology Data Registry (NRDR) Dose Index Registry (DIR) with the [employer] (ACR). RADIATION OPTIMIZATION: All CT scans at this facility use at least one of these dose optimization te chniques: automated exposure control; mA and/or kV adjustment per patient size (includes targeted exa ms where dose is matched to clinical indication); or iterative reconstruction.
== END 2024-06-15 02:15 ==
LOC: DI 01:55
PROVIDERS: PCP Internal Medicine; Visit Provider Internal Medicine
DX: Z12.2 Encounter for screening for malignant neoplasm of respiratory organs (principal); Z87.891 Personal history of nicotine dependence
CPT/HCPCS: 71271

== ENCOUNTER 2025-04-27 09:56 | Outpatient (REF) | payer MEDICAID, SELFPAY ==
[2025-04-27 14:41] LABS: Abs Immature Grans 0.03 10^3/uL (0.0-0.06); HCT 34.1 % (40.0-50.0); HGB 10.1 g/dL (13.5-17.5); Immature Grans % 0.4 %; MCH 21.1 pg (27.0-33.0); MCHC 29.6 % (32.0-36.0); MCV 71 fL (80-95); Platelet Count 233 10^3/uL (130-400); RBC 4.79 10^6/uL (4.36-5.78); RDW 17.8 % (11.8-14.1); RDW-SD 45.3 fL; WBC 7.90 10^3/uL (4.4-10.8)
[2025-04-27 14:56] LABS: TSH 2.13 uIU/mL (0.55-4.78)
[2025-04-27 14:58] LABS: Hypochromasia 1+; Microcytosis 2+
[2025-04-27 14:59] LABS: Hemoglobin A1C 7.6 % (<5.7)
[2025-04-27 15:06] LABS: ALT 27 U/L (10-49); AST 39 U/L (<34); Albumin 3.9 g/dL (3.2-5.0); Alkaline Phosphatase 230 U/L (46-116); Anion Gap 5.1 mmol/L (3-11); BUN 20 mg/dL (9-23); Bilirubin, Total 0.70 mg/dL (0.2-1.2); CO2 25.9 mmol/L (20.0-31.0); Calcium 8.8 mg/dL (8.3-10.6); Chloride 101 mmol/L (98-107); Cholesterol 130 mg/dL (<200); Glucose 330 mg/dL (74-106); HDL Cholesterol 59 mg/dL (>40); Potassium 4.4 mmol/L (3.5-5.1); Sodium 132 mmol/L (136-145); Total Protein 7.1 g/dL (5.7-8.2)
== END 2025-04-27 09:57 | disposition home or self-care (01) ==
LOC: NCHCN 09:56
PROVIDERS: PCP Internal Medicine; Visit Provider Internal Medicine
DX: E78.5 Hyperlipidemia, unspecified (principal); E11.9 Type 2 diabetes mellitus without complications; E03.9 Hypothyroidism, unspecified; K74.60 Unspecified cirrhosis of liver
CPT/HCPCS: 80053; 80061; 83036; 84443; 85025

== ENCOUNTER 2025-05-04 11:03 | Outpatient (REF) | payer MEDICAID, SELFPAY ==
[2025-05-04 15:43] LABS: Iron 23 ug/dL (65-175); Total Iron Binding Capacity 492 ug/dL (250-425)
[2025-05-04 15:47] LABS: Vitamin B12 702 pg/mL (211-911)
[2025-05-04 15:48] LABS: Ferritin 9 ng/mL (11-307)
[2025-05-04 15:50] LABS: Folate > 24.0 ng/mL (>5.38)
== END 2025-05-04 11:04 | disposition home or self-care (01) ==
LOC: NCHCN 11:03
PROVIDERS: PCP Internal Medicine; Visit Provider Internal Medicine
DX: D64.9 Anemia, unspecified (principal); E11.9 Type 2 diabetes mellitus without complications
CPT/HCPCS: 82043; 82570; 82607; 82728; 82746; 83540; 83550